=== PATIENT | female | born 1980 | race Asian ===

== ENCOUNTER 2017-03-21 09:00 | Inpatient (IN) | payer MEDICAID ==
[~2017-03-21] VITALS: Ht 154.9 cm; Wt 73.1 kg
[2017-03-21 09:28] VITALS: BP 124/87; PULSE 20; RESP 20; Ht 154.9 cm; Wt 73.1 kg
[2017-03-21] MEDS ORDERED: FERR325T5 PO (09:47)
[2017-03-21] MEDS ORDERED: PREN1TAB13 PO (09:47)
[2017-03-21] MEDS ORDERED: LABE200T3 PO (09:47)
[2017-03-21] MEDS ORDERED: MISOPROSTOL 200 MCG TAB PR PRN (10:00)
[2017-03-21] MEDS ORDERED: MINERAL OIL LIGHT 10 ML VIAL TOP PRN (10:00)
[2017-03-21] MEDS ORDERED: IBUPROFEN 600 MG TAB PO PRN (10:00)
[2017-03-21] MEDS ORDERED: CARBOPROST 250 MCG INJ IM PRN (10:00)
[2017-03-21] MEDS ORDERED: LIDOCAINE 1% (MPF) 30 ML INJ INJ PRN (10:00)
[2017-03-21] MEDS ORDERED: OXYTOCIN 30 UNITS/LR 500 ML IV PRN (10:00)
[2017-03-21] MEDS ORDERED: BUTORPHANOL 2 MG INJ IV PRN ×2 (10:00)
[2017-03-21] MEDS ORDERED: OXYTOCIN 30 UNITS/LR 500 ML IV SCH (10:00)
[2017-03-21] MEDS ORDERED: METHYLERGONOVINE 0.2 MG INJ IM PRN (10:00)
[2017-03-21 10:03] LABS: ADD SCAN DIFF NO
[2017-03-21 10:04] LABS: BASOPHILS % 0.3 % (0.0-2.0); EOSINOPHILS # 0.1 10^3/ul (0.0-0.5); EOSINOPHILS % 0.9 % (0.0-7.0); HEMATOCRIT 35.5 % (37.0-47.0); LYMPHOCYTES # 1.8 10^3/ul (0.8-2.9); LYMPHOCYTES % 18.2 % (15.0-51.0); MEAN CORPUSCULAR HEMOGLOBIN 30.2 pg (29.0-33.0); MEAN CORPUSCULAR HGB CONC 33.8 g/dl (32.0-37.0); MEAN CORPUSCULAR VOLUME 89.4 fl (82.0-101.0); MEAN PLATELET VOLUME 10.5 fl (7.4-10.4); MONOCYTE # 0.6 10^3/ul (0.3-0.9); MONOCYTES % 6.3 % (0.0-11.0); NEUTROPHIL # 7.3 10^3/ul (1.6-7.5); NEUTROPHILS % 73.8 % (39.0-77.0); PLATELET COUNT 294 10^3/UL (140-415); RED BLOOD COUNT 3.97 10^6/ul (4.20-5.40); RED CELL DISTRIBUTION WIDTH 16.3 % (11.5-14.5); WHITE BLOOD COUNT 9.9 10^3/ul (4.8-10.8)
[2017-03-21 10:23] LABS: INR 0.82; PROTIME 11.3 Sec (12.2-14.2); PT RATIO 0.9
[2017-03-21 10:24] LABS: PARTIAL THROMBOPLASTIN TIME 29.5 Sec (25.0-35.0)
[2017-03-21] MEDS: LACTATED RINGER'S 1,000 ML IV SCH ×2 (10:25→17:55)
[2017-03-21] MEDS ORDERED: DINOPROSTONE 10 MG VAG SUPP VAG ONE (10:30)
[2017-03-21] MEDS ORDERED: AMPICILLIN 2 GM/NS (PMX) 100 ML IVPB ONE (11:00)
[2017-03-21] MEDS: AMPICILLIN 1 GM/NS (PMX) 50 ML IVPB SCH ×3 (14:57→23:18)
--- NOTE | 2017-03-21 18:06 | HP ---
Date/Time of Note Date/Time of Note DATE: 03/21/17 TIME: 17:59 OB - History Hx of Present Free Text/Dictation admitted for induction of the labor per perinatologist Last Menstrual Period: Jun 23, 2016 Estimated Due Date: Mar 30, 2017 : 1 Para: 0 Care: Good Care Ultrasounds: Normal mid trimester US Obstetrical Complications: Other (Chronic HTN ) Medical Complications: Other (Chronic HTN ) Past Family/Social History * Past Medical, Surgical, Family and Obstetric Histories reviewed from chart. Blood Type: O+ Rubella: immune RPR/VDRL: Negative GBS Status: Negative HBsAG: Negative OB Admission Exam Vital Signs Vital Signs Vital Signs Date Time Temp Pulse Resp B/P Pulse Ox O2 Delivery O2 Flow Rate FiO2 03/21/17 09:28 98.8 20 20 124/87 Room Air Physical Exam HEENT: WNL Heart: Rhythm Normal Lungs: Clear, Equal Abdomen: WNL Extremities: Normal Reflexes: Normal Cervical Dilatation: None Effacement: 0% Station: -3 Membranes: Intact Heart Rate: 130's Accelerations: Accelerations Present Decelerations: No Decelerations Varibility: Moderate Contractions on Admission: None Last 72 hours Lab Results CBC & BMP 03/21/17 09:30 OB Assessment/Plan Other Assessment: elevated BP term gestation decreased amniotic fluid Induction Method: per Misoprostol Protocol HARITHA YOON MD Mar 21, 2017 18:06
[2017-03-21] MEDS ORDERED: LACTATED RINGER'S 1,000 ML IV PRN (20:00)
[2017-03-21] MEDS: LABETALOL 200 MG TAB PO SCH (21:05)
[2017-03-22] MEDS: LACTATED RINGER'S 1,000 ML IV SCH ×3 (02:56→20:08)
[2017-03-22] MEDS: AMPICILLIN 1 GM/NS (PMX) 50 ML IVPB SCH ×5 (03:04→17:00)
[2017-03-22] MEDS ORDERED: FENTAnyl 2MCG/ML-ROPIV 0.2% 100 ML BAG EPI SCH (06:30)
[2017-03-22] MEDS ORDERED: NALOXONE (0.4 MG/ML) INJ IV PRN (06:30)
[2017-03-22] MEDS ORDERED: DIPHENHYDRAMINE 50 MG INJ IV PRN (06:30)
[2017-03-22] MEDS ORDERED: ONDANSETRON 4 MG INJ IV PRN (06:30)
[2017-03-22] MEDS: LABETALOL 200 MG TAB PO SCH (09:00)
[2017-03-22] MEDS ORDERED: OXYTOCIN 30 UNITS/LR 500 ML IV SCH (11:30)
--- NOTE | 2017-03-22 19:29 | LDN ---
Date/Time of Note Date/Time of Note DATE: 03/22/17 TIME: 19:26 Delivery Summary of a viable infant over intact perineum Weeks of Gestation 39+ Placenta Delivered: Spontaneously, Intact & Complete Meconium: Thick Episiotomy: No Perineal laceration: 2 Laceration repair: 2 X vulvar lacerations were repaired wiith 2-0 Vicryl and 2nd degree perineal laceration was closed in layers with 2 0 Vicryl and 2 0 Chromic Anesthesia type: Epidural Estimated blood loss: 400 Sponge & Needle done & correct: Yes All needle counts correct: Yes Any foreign bodies felt in the: No Problems: Delivery Information Sex Sex: female Apgars 1 Minute: 9 5 Minute: 9 Suctioning Nose & mouth suctioned at hailey: Yes Delee suction performed: No Umbilical Cord Umbilical cord with: 3 Vessels Cord presentations: no nuchal cord Cord Blood was obtained: Yes Mother & Baby Disposition Disposition Mom & Baby to Maternity; Good: Yes (mother and baby were recovered in good condition ) Mom transferred to: Other (maternity ) Baby to NICU: No HARITHA YOON MD Mar 22, 2017 19:29
[2017-03-22 21:20] VITALS: BP 129/70; PULSE 98; RESP 18
[2017-03-22 21:50] VITALS: BP 116/70; PULSE 91; RESP 18
[2017-03-22] MEDS ORDERED: METHYLERGONOVINE 0.2 MG INJ IM PRN (22:00)
[2017-03-22] MEDS ORDERED: ZOLPIDEM 5 MG TAB PO PRN (22:00)
[2017-03-22] MEDS ORDERED: LANOLIN 7 GM TUBE TOP PRN (22:00)
[2017-03-22] MEDS ORDERED: ESTROGENS CONJUGATED 42.5 GM VAG CR VAG SCH (22:00)
[2017-03-22] MEDS ORDERED: MISOPROSTOL 200 MCG TAB PR PRN (22:00)
[2017-03-22] MEDS ORDERED: BENZOCAINE 20% 56 ML SPRAY TOP PRN (22:00)
[2017-03-22] MEDS ORDERED: ACETAMINOPHEN/CODEINE #3 TAB PO PRN ×2 (22:00)
[2017-03-22] MEDS ORDERED: WITCH HAZEL/GLYCERIN PAD PR PRN (22:00)
[2017-03-22] MEDS ORDERED: CARBOPROST 250 MCG INJ IM PRN (22:00)
[2017-03-22] MEDS ORDERED: OXYTOCIN 30 UNITS/LR 500 ML IV PRN (22:00)
[2017-03-22] MEDS ORDERED: DIBUCAINE 1% 30 GM OINT PR PRN (22:00)
[2017-03-22] MEDS: LACTATED RINGER'S 1,000 ML IV* SCH (23:39)
[2017-03-23] MEDS: IBUPROFEN 600 MG TAB PO SCH ×4 (00:28→17:45)
[2017-03-23] MEDS: CEPHALEXIN 500 MG CAP PO SCH ×4 (00:28→17:45)
[2017-03-23 04:00] VITALS: BP 97/54; RESP 18
--- NOTE | 2017-03-23 04:05 | DELSUM ---
Delivery Summary A-C Datetime Report Generated by CPN: 03/23/2017 04:05 DELIVERY PERSONNEL Plug Paster: Moore, Randi MATERNAL INFORMATION Delivery Anesthesia: Epidural Medications in Delivery: SEE EMAR Estimated Blood Loss (ml): 400 Placenta Cultured: No Maternal Complications: Other Other Maternal Complications: CHRONIC HYPERTENSION LABOR SUMMARY EDC: 03/30/2017 00:00 No. Babies in Womb: 1 Attempted: No Labor Anesthesia: Epidural LABOR INFORMATION Reason for Induction: Oligohydramnios Onset of Labor: 03/22/2017 02:56 Complete Dilatation: 03/22/2017 18:01 Cervical Ripening Agents: Cervidil Oxytocin: Augmentation Group B Beta Strep: Positive Group B Beta Strep: Done, Result Unknown Antibiotics # of Doses: 8 Antibiotics Time of Last Dose: 03/22/2017 15:05 Steroids Given: None Reason Steroids Not Administered: Not Applicable MEMBRANES Membranes Rupture Method: Artificial Rupture of Membranes: 03/22/2017 11:55 Length of Rupture (hr): 6.82 Amniotic Fluid Color: Heavy Meconium Amniotic Fluid Amount: Moderate Amniotic Fluid Odor: None STAGES OF LABOR Stage 1 hr: 15 Stage 1 min: 5 Stage 2 hr: 0 Stage 2 min: 43 Stage 3 hr: 0 Stage 3 min: 2 Total Time in Labor hr: 15 Total Time in Labor min: 50 VAGINAL DELIVERY Episiotomy: None Laceration Extension: Second Degree Laceration Type: Perineal Laceration Repair: Yes Initial Vag Sponge Count: 20 Final Vag Sponge Count: 20 Initial Vag Sharps Count: 1 Final Vag Sharps Count: 5 BABY A INFORMATION Delivery Date/Time: 03/22/2017 18:44 Method of Delivery: Vaginal Born in Route : No : N/A Forceps: N/A Vacuum Extraction: N/A Shoulder Dystocia : No SHOULDER DYSTOCIA BABY A Delivery Date/Time: 03/22/2017 18:44 PRESENTATION/POSITION BABY A Presentation: Cephalic Cephalic Presentation: Vertex Vertex Position: Left Occipital Anterior Breech Presentation: N/A PLACENTA INFORMATION BABY A Placenta Delivery Time : 03/22/2017 18:46 Placenta Method of Delivery: Spontaneous Placenta Status: Delivered SCORES BABY A Heart Rate 1 min: >100 bpm Resp Effort 1 min: Good Cry Reflex Irritability 1 min: Cough/Sneeze/Pulls Away Muscle Tone 1 min: Active Motion Color 1 min: Body [place], Extremit Blue SCORE 1 MIN: 9 Heart Rate 5 min: >100 bpm Resp Effort 5 min: Good Cry Reflex Irritability 5 min: Cough/Sneeze/Pulls Away Muscle Tone 5 min: Active Motion Color 5 min: Body Diablo, Extremit Blue SCORE 5 MIN: 9 INFORMATION BABY A Gestational Age at Delivery: 38.6 Gestational Status: Early Term- 37- 38.6 Weeks Outcome : Liveborn Infant Condition : Stable Sex: Female IDENTIFICATION/MEDS BABY A ID Band Number: [id number] ID Band Location: Right Leg; Left Arm Sensor Applied: Yes Sensor Number: [id number] Sensor Location : Cord Clamp Vitamin K Given : Not Given Erythromycin Given: Not Given WEIGHT/LENGTH BABY A Birthweight (gm): 3100 Weight (lb): 6 Weight (oz): 13 Length (in): 20.50 Infant Length (cm): 52.07 CORD INFORMATION BABY A No. Cord Vessels: 3 Nuchal Cord : N/A Cord Blood Taken: Yes Infant Suction: Mouth ASSESSMENT BABY A Infant Complications: Meconium Physical Findings at Delivery: Within Normal Limits Respirations: Appears Normal Maintenance Journeyman/ALS Called : No Care By: Keith FERGUSON RN Transferred To: Remains with Mother
[2017-03-23] MEDS: LACTATED RINGER'S 1,000 ML IV* SCH ×3 (05:59→21:59)
[2017-03-23 07:56] LABS: ADD SCAN DIFF NO
[2017-03-23 07:59] LABS: BASOPHILS % 0.3 % (0.0-2.0); EOSINOPHILS # 0.1 10^3/ul (0.0-0.5); EOSINOPHILS % 0.5 % (0.0-7.0); HEMATOCRIT 26.5 % (37.0-47.0); HEMOGLOBIN 9.2 g/dl (12.0-16.0); LYMPHOCYTES # 1.7 10^3/ul (0.8-2.9); MEAN CORPUSCULAR HEMOGLOBIN 31.1 pg (29.0-33.0); MEAN CORPUSCULAR HGB CONC 34.7 g/dl (32.0-37.0); MEAN CORPUSCULAR VOLUME 89.5 fl (82.0-101.0); MEAN PLATELET VOLUME 10.5 fl (7.4-10.4); MONOCYTE # 0.6 10^3/ul (0.3-0.9); MONOCYTES % 4.2 % (0.0-11.0); NEUTROPHIL # 10.6 10^3/ul (1.6-7.5); NEUTROPHILS % 81.6 % (39.0-77.0); PLATELET COUNT 204 10^3/UL (140-415); RED BLOOD COUNT 2.96 10^6/ul (4.20-5.40); RED CELL DISTRIBUTION WIDTH 15.8 % (11.5-14.5)
[2017-03-23 08:00] VITALS: BP 122/75; PULSE 101; RESP 18
[2017-03-23] MEDS: SENNA/DOCUSATE NA (8.6MG/50MG) TAB PO SCH ×2 (09:00→21:00)
[2017-03-23] MEDS: MAGNESIUM HYDROXIDE 30ML CUP PO SCH ×2 (09:00→21:00)
--- NOTE | 2017-03-23 12:44 | DS ---
Date/Time of Note Date/Time of Note home next day DATE: 03/23/17 TIME: 12:42 Obstetrical Discharge Record Final Diagnosis Final Diagnosis: Term delivered Other Final Diagnosis S/P vaginal delivery Vaginal Delivery Obstetrical Delivery: Spontaneous, Laceration, Repaired Complications Augmentation: Yes Induction: Yes Condition on Discharge Physical Assessment Last Vitals: see nurses notes Voiding: Yes Bowel Movement: Yes Breast: Soft, non-tender, Filling Fundus: Firm Abdomen and Incision: soft bs + Episiotomy: NA perineum : healing Calf Tenderness: No Patient Condition: Good HARITHA YOON MD Mar 23, 2017 12:44
--- NOTE | 2017-03-23 12:45 | PD.PPDC ---
[employer] Discharge Instruction Provider Information Physician Information 37 y/o female had vaginal delivery Diagnosis Final Diagnosis: S/P vaginal delivery Condition Patient Condition: Good Diet Diet: Resume Regular Diet Activity/Restrictions Activity: Normal Activity May Shower Restrictions: Nothing in the Vagina Return to Work or School: May 06, 2017 Follow-up Follow-up with Physician: 4, Week/Weeks (in clinic) Return to clinic for OB Instructions: Breast Tenderness Depression HARITHA YOON MD Mar 23, 2017 12:45
[2017-03-23] MEDS ORDERED: IBUP-1542 PO (12:47)
[2017-03-23] MEDS ORDERED: PREMVAG VAG (12:47)
[2017-03-23] MEDS: ESTROGENS CONJUGATED 42.5 GM VAG CR VAG SCH (13:00)
[2017-03-23 15:58] VITALS: BP 130/79; PULSE 96; RESP 18
[2017-03-24] MEDS: IBUPROFEN 600 MG TAB PO SCH ×4 (01:14→17:43)
[2017-03-24] MEDS: CEPHALEXIN 500 MG CAP PO SCH ×4 (01:14→17:43)
[2017-03-24 01:20] VITALS: BP 110/55; PULSE 84; RESP 18
[2017-03-24 04:30] VITALS: BP 112/60; PULSE 85; RESP 18
[2017-03-24] MEDS: LACTATED RINGER'S 1,000 ML IV* SCH (05:59)
[2017-03-24 07:45] VITALS: BP 137/76; PULSE 95; RESP 18
[2017-03-24 08:09] LABS: ADD SCAN DIFF NO
[2017-03-24 08:17] LABS: BASOPHIL # 0.1 10^3/ul (0.0-0.1); BASOPHILS % 0.4 % (0.0-2.0); EOSINOPHILS # 0.2 10^3/ul (0.0-0.5); EOSINOPHILS % 1.4 % (0.0-7.0); HEMATOCRIT 25.7 % (37.0-47.0); HEMOGLOBIN 8.5 g/dl (12.0-16.0); LYMPHOCYTES # 2.3 10^3/ul (0.8-2.9); LYMPHOCYTES % 20.1 % (15.0-51.0); MEAN CORPUSCULAR HEMOGLOBIN 29.9 pg (29.0-33.0); MEAN CORPUSCULAR HGB CONC 33.1 g/dl (32.0-37.0); MEAN CORPUSCULAR VOLUME 90.5 fl (82.0-101.0); MEAN PLATELET VOLUME 10.5 fl (7.4-10.4); MONOCYTE # 0.6 10^3/ul (0.3-0.9); MONOCYTES % 5.3 % (0.0-11.0); NEUTROPHIL # 8.1 10^3/ul (1.6-7.5); NEUTROPHILS % 72.4 % (39.0-77.0); PLATELET COUNT 217 10^3/UL (140-415); RED BLOOD COUNT 2.84 10^6/ul (4.20-5.40); WHITE BLOOD COUNT 11.2 10^3/ul (4.8-10.8)
[2017-03-24] MEDS ORDERED: MEASLES,MUMPS,RUBELLA VACCINE INJ SC* ONE (09:00)
[2017-03-24] MEDS ORDERED: VARICELLA VACCINE LIVE/PF 1,350 UNIT/0.5 ML ML SC* ONE (09:00)
[2017-03-24] MEDS: SENNA/DOCUSATE NA (8.6MG/50MG) TAB PO SCH (09:00)
[2017-03-24] MEDS ORDERED: DIPHTH/TET/ACEL PERTUSS (ADULT) 0.5 ML VIAL IM* ONE (09:00)
[2017-03-24] MEDS: MAGNESIUM HYDROXIDE 30ML CUP PO SCH (09:00)
[2017-03-24] MEDS: ESTROGENS CONJUGATED 42.5 GM VAG CR VAG SCH (10:40)
[2017-03-24 16:30] VITALS: BP 132/76; PULSE 86; RESP 18
== END 2017-03-24 19:22 | disposition home or self-care (01) | DRG 774 ==
LOC: L-D 09:04 → PP1 03-22 21:22
PROVIDERS: ADMIT Obstetrics & Gynecology; ATTEND Obstetrics & Gynecology
PROC: 10E0XZZ Delivery of Products of Conception, External Approach (ICD-10-PCS; principal; 2017-03-22)
PROC: 0KQM0ZZ Repair Perineum Muscle, Open Approach (ICD-10-PCS; 2017-03-22)
DX: O70.1 Second degree perineal laceration during delivery (principal); O16.3 Unspecified maternal hypertension, third trimester; Z37.0 Single live birth; Z3A.39 39 weeks gestation of pregnancy
CPT/HCPCS: 62319; 85025; 85610; 85730; 86592; 86900; 86901; 87340; 90715; 90716; 99464; J0290; J2590; J3010; J7120